=== PATIENT | male | born 1960 | race Caucasian/White ===

== ENCOUNTER → 2017-02-18 | Outpatient (CLI) | payer OTHER ==
[~2017-02-18] MED LIST: CYAN100020 PO; FLUT0.15 NAE; FLV1 PO; IBUP-1050 PO; MONT1TAB3 PO; SYMIN/8045 INH
[2017-02-18 17:18] LABS: ALT/SGPT 33 U/L (12-78); BLOOD UREA NITROGEN 10 mg/dl (7-18); BUN/CREATININE RATIO 10.1 (10-20); CALCIUM 8.7 mg/dl (8.5-10.1); CARBON DIOXIDE 27 mmol/L (21-32); CHLORIDE 104 mmol/L (98-107); CHOLESTEROL 234 mg/dl (0-200); CREATININE 0.97 mg/dl (0.60-1.40); GLUCOSE 90 mg/dl (70-99); POTASSIUM 4.2 mmol/L (3.5-5.1); SODIUM 137 mmol/L (136-145); TRIGLYCERIDES 70 mg/dl (0-150); VERY LOW DENSITY LIPOPROT CALC 14 mg/dl
[2017-02-18 17:28] LABS: ALKALINE PHOSPHATASE 114 U/L (45-117); AST/SGOT 19 U/L (15-37); CHOLESTEROL/HDL RATIO 3.8; HDL CHOLESTEROL 61 mg/dl; LDL CHOLESTEROL CALCULATED 159 mg/dl; PROSTATE SPECIFIC ANTIGEN 0.755 ng/ml (0.000-4.000)
== END | disposition home or self-care (01) ==
LOC: C.LABBC 14:22
PROVIDERS: ATTEND Physician Assistant Medical
DX: Z00.00 Encounter for general adult medical examination without abnormal findings (principal); J45.909 Unspecified asthma, uncomplicated; E78.5 Hyperlipidemia, unspecified; E72.12 Methylenetetrahydrofolate reductase deficiency; Z12.5 Encounter for screening for malignant neoplasm of prostate; Z11.59 Encounter for screening for other viral diseases

== ENCOUNTER 2021-12-24 15:21 | Inpatient (IN) ==
[2021-12-24] MEDS ORDERED: Heparin IV Adult Wt-Based Standard WITH Bolus Protocol IV STA (16:16)
--- NOTE | 2021-12-24 16:30 | Emergency Department Note ---
Impression & Plan Bilateral pulmonary embolism, Back pain, Breath shortness ED Provider Note NAME: SUSANNA BATISTA AGE: 61 SEX: M : 1960 ARRIVES VIA: Walk-In INFORMANT: Patient ED PROVIDER(S): Maximus Yepez DO CHIEF COMPLAINT: back pain HPI: Patient is a 61-year-old male who presents to the ER with a past medical history of previous PEs and DVTs for back pain and shortness of breath which has been present for the past week. He had a CT angio of the chest today which sh owed bilateral PEs which were extensive. He was consequently referred to the ER. He initially thought it was his asthma because when he used his inhaler it did help out. Denies any belly pain, nausea, vomiting, or diarrhea. No dysuria, urgency, or frequency. Left calf has been larger than right for the past several years following his previous DVT. 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 Pain is a 4 out of 10 in the left upper back. ROS: See above HPI for pertinent positives & negatives. A total of 10 systems reviewed and were otherwise negative. PAST MEDICAL HISTORY:See Below PAST SURGICAL HISTORY:See Below FAMILY HISTORY:See Below SOCIAL HISTORY:See Below HOME MEDICATIONS:See Below ALLERGIES:See Below VITALS:See Below PHYSICAL EXAMINATION: GENERAL: Sitting up in bed, alert, well appearing, well nourished, no distress, non-toxic EYE EXAM: normal conjunctiva. OROPHARYNX: no exudate, no erythema, lips, buccal mucosa, and tongue normal and mucous membranes are moist NECK: supple, no nuchal rigidity, no adenopathy, non-tender LUNGS: Clear to auscultation. Normal chest wall mechanics HEART: no murmurs, S1 normal and S2 normal ABDOMEN: abdomen soft, non-tender, normo-active bowel sounds, no masses, no rebound or guarding. BACK: Back is symmetrical on inspection and there is no deformity, no midline tenderness, no CVA tenderness. UPPER EXTREMITIES: upper extremities are grossly normal. LOWER EXTREMITIES: No pitting edema. NEURO EXAM: Normal sensorium, cranial nerves II-XII grossly intact, normal speech, no gross weakness of arms, no gross weakness of legs. MEDICAL DECISION MAKING: Patient is a 61-year-old male who presents the ER for above-stated complaint. IV was established blood work was obtained. Labs show no significant leukocy tosis or anemia. INR unremarkable. BMP along with LFTs bilirubin and lipase is unremarkable. Troponin was negative. COVID unremarkable. CT angio of the chest was reviewed which was done as an outpatient and showed extensive bilateral PEs. Vitals were fairly stable with pulse ox ranging from 94 to 91%. He was nontachycardic. He had no bleeding risk factors as he denied coughing up blood, vomiting blood, dark tarry stools or bright red blood per rectum. No recent trauma or surgery. No previous head bleeds. He was on blood thinners before and did well. He was placed on a heparin drip and given a heparin bolus as well. He was updated bedside discussed with [facility] hospitalist Dr. Davian Morton admitted for further work-up. Triage Nursing notes reviewed. Limited review of prior medical records performed Vital Signs: reviewed and remarkable for HTN Differential diagnosis: Differential diagnoses includes but is not limited to pneumonia, bronchitis, COPD/Asthma exacerbation, pneumothorax, pulmonary embolism, congestive heart failure, acute coronary syndrome ER treatment provided: See below Diagnostics interpreted by me: ECG: Sinus bradycardia rate of 57 Normal axis No PVCs QTC 404 Cardiac Monitoring: An order was placed for continuous cardiac monitoring. The monitor shows a rate of 65 with sinus rhythm. Laboratory studies: As stated above and show below. Imaging studies: CT angio was reviewed of the chest which showed bilateral PEs Consultation(s): Discussed with Dr. Davian Morton as described above Procedures: none Critical Care: I have personally spent 35 minutes of critical care time in the direct management of this patient. This includes bedside care, interpretation of diagnostic studies, and testing, discussion with consultants, patient, and family members, and other required patient management activities. This 35 minutes is in excess of all separately billable procedures. Past Med/Surg History Medical History Asthma USES INH TWICE PER MONTH ON AVERAGE Deep vein thrombosis APPROX 5 YEARS AGO - LIFE FLIGHTED TO [facility] - TREATED W/ BLOOD THINNERS (ON COUMADIN X 1 YEAR) - DX MTHFR MUTATION Elevated blood pressure reading without diagnosis of hypertension Herpes History of MTHFR mutation History of pulmonary embolus (PE) Hyperlipidemia Lactose intolerance Methylenetetrahydrofolate reductase deficiency Pulmonary embolism APPROX 5 YEARS AGO DVT --> PE - LIFE FLIGHTED TO [facility] - TREATED W/ BLOOD THINNERS (ON COUMADIN X 1 YEAR) - DX MTHFR MUTATION Seasonal allergies Tobacco use Surgical History H/O sinus surgery H/O tooth extraction History of colonoscopy Family History Father Hyperlipidemia Sister Type 2 diabetes mellitus Father Pancreatic cancer Denies family history of Ovarian cancer Prostate cancer Breast cancer Lung cancer Colorectal cancer Social History Smoking Status: Current every day smoker Tobacco Type: Cigarettes Age Started Using Tobacco: 16; Cigarettes Per Day: 1 PACK EVERY 3 DAYS; Second Hand Exposure: No; Hx Alcohol Use: Yes Alcohol type: beer, wine and hard liquor Hx Substance Use: No Preferred Language: [place] Citizen Communication Ability: Effective Visual Impairment: Partially Limited Hearing Ability: Normal Morphologist Required: No Beliefs That Will Affect Care: None marital status: Single Current Living Situation: Alone current occupational status: employed current occupation: [employer] How many Children do You have: 0 Feels Safe at Home: Yes Childhood Exposure to Second-Hand Smoke: No caffeine: Yes Dental Care, Regularly: Yes Physical Activity Frequency: Does not Exercise Seatbelt Use: always Sunscreen Use: Yes Allergies Allergies Allergy/AdvReac Type Severity Reaction Status Date / Time No Known Allergies Allergy Mild Verified 12/24/21 17:22 Home Meds Home Medications Medication Instructions Recorded Confirmed cyanocobalamin (vitamin B-12) 1 mg PO DAILY 02/21/18 12/24/21 1,000 mcg tablet (Vitamin B-12) folic acid 1 mg tablet 1 mg PO DAILY 02/21/18 12/24/21 montelukast 10 mg tablet 10 mg PO DAILY #90 tabs 01/17/19 12/24/21 sildenafil 100 mg tablet 100 mg PO DAILY PRN sexual activity 01/17/19 12/24/21 Previous Rx's Medication Instructions Recorded acyclovir 200 mg capsule 200 mg PO TID PRN herpes simiplex 04/18/20 type 1 #30 caps albuterol sulfate 90 mcg/actuation 2 puff inhalation Q6H PRN 08/01/20 aerosol inhaler (Ventolin HFA) shortness of breath or wheezing #8.5 grams fluticasone propionate 50 See Rx Instructions .Route 12/23/20 mcg/actuation nasal .COMPLEX #48 grams spray,suspension hydrocortisone 2.5 % topical cream 1 applic topical .COMPLEX #30 grams 11/24/21 fluticasone furoate 100 1 inh inhalation DAILY #60 ea 12/17/21 mcg-vilanterol 25 mcg/dose inhalation powder (Breo Ellipta) Results & Data (ED) Vital Signs Vital Signs - 24 hr 12/24/21 15:29 12/24/21 15:59 12/24/21 16:00 Temperature 36.4 C L Temperature Source Oral Pulse Rate 69 67 Pulse Rate [Apical] 62 Pulse Rhythm Regular Regular Pulse Rhythm [Apical] Regular Pulse Strength Normal Respiratory Rate 20 16 16 Respiratory Effort / Characteristics Non-Labored Spontaneous Respiratory Depth Normal Respiratory Pattern Regular Blood Pressure 151/89 H Blood Pressure [Left Arm] 160/93 H Blood Pressure Mean 109 Blood Pressure Mean [Left Arm] 115 Blood Pressure Position Sitting Pulse Oximetry 91 94 94 Oxygen Delivery Method Room Air Room Air Room Air Sepsis Recent Fever Within 48 Hours No Sepsis New/Unexplained Change in Mental Status No Sepsis Action Taken by Nursing No Action Required Laboratory Data Result diagrams: 12/24/21 16:19 12/24/21 16:19 Lab Results 12/24/21 12/24/21 12/24/21 Range/Units 16:19 16:19 16:19 WBC 11.01 H (4.8-10.8) K/ul RBC 4.99 (4.63-6.08) M/uL Hgb 15.7 (14.0-18.0) g/dl Hct 46.0 (40.1-51.0) % MCV 92.2 (80.0-100.0) fL MCH 31.5 (25.0-34.0) pg MCHC 34.1 (32.0-36.0) g/dL RDW Std Deviation 40.9 (36.4-46.3) fL RDW Coeff of Willa 12.0 (11.5-14.5) % Plt Count 261 (130-400) K/uL MPV 9.7 (9.4-12.4) fL Immature Gran % (Auto) 0.2 % Neut % (Auto) 53.3 % Lymph % (Auto) 21.9 % [place] % (Auto) 7.0 % Eos % (Auto) 16.8 % Baso % (Auto) 0.8 % Neut # (Auto) 5.87 (1.4-6.5) K/uL Lymph # (Auto) 2.41 (1.2-3.4) K/uL [place] # (Auto) 0.77 (0.24-0.82) K/uL Eos # (Auto) 1.85 H (0-0.50) K/uL Baso # (Auto) 0.09 (0-0.2) K/uL Immature Gran # (Auto) 0.02 (0.00-0.02) K/uL PT 11.2 (9.0-12.0) Seconds INR 1.1 (0.9-1.1) APTT 25.2 (21.0-31.0) Seconds PTT Ratio 0.9 Sodium 138 (136-145) mmol/L Potassium 4.5 (3.5-5.1) mmol/L Chloride 101 (98-107) mmol/L Carbon Dioxide 29 (21-32) mmol/L Anion Gap 8 (3-11) BUN 12 (6-23) mg/dl Creatinine 0.96 (0.6-1.4) mg/dl Est Cr Clr Drug Dosing 93.7 ml/min Est GFR ( Amer) 97.1 ml/min Est GFR (Non-Af Amer) 83.8 ml/min BUN/Creatinine Ratio 12.5 (10-20) Glucose 80 (70-99(Fasting)) mg/dl Calcium 9.3 (8.5-10.1) mg/dl Total Bilirubin 0.8 (0.2-1.0) mg/dl AST 18 (13-39) U/L ALT 18 (7-52) U/L Alkaline Phosphatase 109 H (34-104) U/L Troponin I High Sens 6.5 (0-20) pg/ml Total Protein 7.3 (6.0-8.3) gm/dl Albumin 4.1 (3.4-5.0) gm/dl Globulin 3.2 (2.5-4.0) gm/dl Albumin/Globulin Ratio 1.3 (0.9-2) Lipase 27 (11-82) U/L SARS-CoV-2, RNA, NAAT (NEGATIVE) 12/24/21 Range/Units 17:10 WBC (4.8-10.8) K/ul RBC (4.63-6.08) M/uL Hgb (14.0-18.0) g/dl Hct (40.1-51.0) % MCV (80.0-100.0) fL MCH (25.0-34.0) pg MCHC (32.0-36.0) g/dL RDW Std Deviation (36.4-46.3) fL RDW Coeff of Willa (11.5-14.5) % Plt Count (130-400) K/uL MPV (9.4-12.4) fL Immature Gran % (Auto) % Neut % (Auto) % Lymph % (Auto) % [place] % (Auto) % Eos % (Auto) % Baso % (Auto) % Neut # (Auto) (1.4-6.5) K/uL Lymph # (Auto) (1.2-3.4) K/uL [place] # (Auto) (0.24-0.82) K/uL Eos # (Auto) (0-0.50) K/uL Baso # (Auto) (0-0.2) K/uL Immature Gran # (Auto) (0.00-0.02) K/uL PT (9.0-12.0) Seconds INR (0.9-1.1) APTT (21.0-31.0) Seconds PTT Ratio Sodium (136-145) mmol/L Potassium (3.5-5.1) mmol/L Chloride (98-107) mmol/L Carbon Dioxide (21-32) mmol/L Anion Gap (3-11) BUN (6-23) mg/dl Creatinine (0.6-1.4) mg/dl Est Cr Clr Drug Dosing ml/min Est GFR ( Amer) ml/min Est GFR (Non-Af Amer) ml/min BUN/Creatinine Ratio (10-20) Glucose (70-99(Fasting)) mg/dl Calcium (8.5-10.1) mg/dl Total Bilirubin (0.2-1.0) mg/dl AST (13-39) U/L ALT (7-52) U/L Alkaline Phosphatase (34-104) U/L Troponin I High Sens (0-20) pg/ml Total Protein (6.0-8.3) gm/dl Albumin (3.4-5.0) gm/dl Globulin (2.5-4.0) gm/dl Albumin/Globulin Ratio (0.9-2) Lipase (11-82) U/L SARS-CoV-2, RNA, NAAT NEGATIVE (NEGATIVE) Administered Medications Heparin Sodium/Dextrose (Heparin Sodium/Dextrose) 25,000 units in 500 mls @ 30 mls/hr IV .[id number] [facility]; Protocol Stop: 01/23/22 16:44 Last Admin: 12/24/21 17:33 Dose: 1,500 units/hr, 30 mls/hr Documented By: DELVIN Co-signed By: OL Discontinued Medications Heparin Sodium (Porcine) (Heparin Sod (Porcine) 1000 Unit/Ml) 7,000 units IV NOW ONE Stop: 12/24/21 16:46 Last Admin: 12/24/21 17:33 Dose: 7,000 units Documented By: DELVIN Co-signed By: HERMELINDA Heparin Sodium/Dextrose (Heparin Iv Adult Wt-Based Standard With Bolus Protocol) 1 [facility]; Protocol Stop: 12/24/21 16:17 Last Admin: 12/24/21 17:37 Dose: 1 each Documented By: DELVIN Imaging Data Radiologist's Impression: Venous Doppler Study 12/24/21 17:25 ULTRASOUND BILATERAL LOWER EXTREMITY VENOUS CLINICAL HISTORY: Pulmonary embolus. COMPARISON STUDY: Left lower extremity venous ultrasound dated 02/21/2018 TECHNIQUE: Real-time, grayscale, and color Doppler sonography of the deep veins of the right and left lower extremity was performed from the inguinal crease to the calf. Compression and augmentation were utilized. FINDINGS: There is no sonographic evidence of deep venous thrombosis identified in the right or left lower extremity. The common femoral, superficial femoral, and popliteal veins are patent and normally compressible bilaterally. The greater saphenous vein and the profunda femoris vein at the junction with the common femoral vein are clear in both legs. The visualized calf veins are patent bilaterally. IMPRESSION: There is no sonographic evidence of deep venous thrombosis identified in the right or left lower extremity. ACT 112: Negative or not required by law. Electronically signed by: Dave Lagos M.D. 12/24/2021 6:40 PM Discharge Plan Visit Data Chief Complaint: Shortness of Breath/Dyspnea Stated Complaint: PE, BILATERAL ED Provider: Maximus Yepez Discharge Problem: Bilateral pulmonary embolism, Back pain, Breath shortness Forms Stand Alone Forms: My [facility] [place] Prescriptions Prescriptions: No Action acyclovir 200 mg capsule 200 mg PO TID PRN (Reason: herpes simiplex type 1) Qty: 30 0RF fluticasone propionate 50 mcg/actuation spray,suspension See Rx Instructions .ROUTE .COMPLEX Qty: 48 3RF Dose Instruction: ADMINISTER 2 SPRAYS INTRANASALLY TWICE A DAY. Rx Instructions: ADMINISTER 2 SPRAYS INTRANASALLY TWICE A DAY. hydrocortisone 2.5 % cream 1 applic TOP .COMPLEX Qty: 30 3RF Rx Instructions: 1 applic topical 2-3 times daily to affected areas; Breo Ellipta 100-25 mcg/dose blister with device 1 inh inhalation DAILY Qty: 60 2RF montelukast 10 mg tablet 10 mg PO DAILY Qty: 90 sildenafil 100 mg tablet 100 mg PO DAILY PRN (Reason: sexual activity) albuterol sulfate [Ventolin HFA] 90 mcg/actuation HFA aerosol inhaler 2 puff inhalation Q6H PRN (Reason: shortness of breath or wheezing) Qty: 8.5 3RF cyanocobalamin (vitamin B-12) [Vitamin B-12] 1,000 mcg Tablet 1 mg PO DAILY folic acid 1 mg Tablet 1 mg PO DAILY Referrals Referrals: Logan Longo MD [Primary Care Provider] -
[2021-12-24] MEDS ORDERED: HEPARIN SOD (PORCINE) 1000 UNIT/ML IV ONE ×2 (16:32→16:45)
[2021-12-24 16:37] LABS: Basophils # (auto) 0.09 K/uL (0-0.2); Basophils % (auto) 0.8 %; Eosinophils # (auto) 1.85 K/uL (0-0.50); Eosinophils % (auto) 16.8 %; Hemoglobin 15.7 g/dl (14.0-18.0); Immature Granulocytes # (auto) 0.02 K/uL (0.00-0.02); Immature Granulocytes % (auto) 0.2 %; Lymphocytes # (auto) 2.41 K/uL (1.2-3.4); Lymphocytes % (auto) 21.9 %; Mean Corpuscular Hemoglobin 31.5 pg (25.0-34.0); Mean Corpuscular Hgb Conc 34.1 g/dL (32.0-36.0); Mean Corpuscular Volume 92.2 fL (80.0-100.0); Mean Platelet Volume 9.7 fL (9.4-12.4); Monocytes # (auto) 0.77 K/uL (0.24-0.82); Neutrophils # (auto) 5.87 K/uL (1.4-6.5); Neutrophils % (auto) 53.3 %; Platelet Count 261 K/uL (130-400); RDW Standard Deviation 40.9 fL (36.4-46.3); Red Blood Count 4.99 M/uL (4.63-6.08); White Blood Count 11.01 K/ul (4.8-10.8)
[2021-12-24 16:55] LABS: INR 1.1 (0.9-1.1); Partial Thromboplastin Ratio 0.9; Partial Thromboplastin Time 25.2 Seconds (21.0-31.0); Prothrombin Time 11.2 Seconds (9.0-12.0)
--- NOTE | 2021-12-24 17:03 | History & Physical Report ---
Date of Service December 24, 2021 Assessment & Plan (1) Bilateral pulmonary embolism: Plan: -Admit to PCU -Patient is currently afebrile, hemodynamically stable and stable on RA -Patient has history of previous DVT with PE's in 2010, was diagnosed with MTHFR gene mutation on workup at that time, was taken off Warfarin after a year but continues to take folic acid and B12 as prescribed -Spoke to the ICU who recommended heparin bolus and drip for at least 12-14 tiesha rs minimum prior to switching to oral anticoagulants -CT without evidence of right heart strain, will get TTE to confirm -Will order BL LE dopplers to monitor for DVT's -Monitor on tele and continuous pulse oximetry -AM CBC and BMP (2) Methylenetetrahydrofolate reductase deficiency: Plan: -Diagnosed on hypercoagulable workup from first DVT/PE -Continue B12 and folic acid, will get B12 and folic acid levels to ensure he is getting adequate dosing (3) Tobacco use: Plan: -Quit 3 weeks ago -Does not want nicotine patch or gum at this time (4) Hyperlipidemia: Plan: -Not currently on a statin, could consider restarting prior to discharge -Added on lipid panel Plan The patient was discussed with Dr. Morton at the time of admission History of Present Illness Chief Complaint: Back pain/SOB Primary Care Provider: Logan Longo MD Bassem is a 61 year old male with a PMH significant for previous DVT/PE in 2010, MTHFR mutation on previous hypercoagulable workup, 30 yr smoking history for which he recently quit 3 weeks ago,, hyperlipidemia, asthma, who presented to the [facility] ED on 12/24/21 with complaints of back pain, pleuritic chest pain, and worsening dyspnea for the past week. He was seen at his PCP's office earlier today for the same symptoms, they ordered him a STAT CTA of the Chest due to his past history. CTA shows extensive BL pulmonary emboli, trace left pleural effus ion, and bronchial wall thickening suggestive of bronchitis/reactive airway disease. The patient was sent to the ED after his CT was read. In the ED he was found to be afebrile, hemodynamically stable, and stable on RA. The patient was given a heparin bolus and then started on a heparin drip prior to admission. At the time of the exam the patient was sitting comfortably in bed in no acute distress. He states he started developing back pain and increased SOB from his baseline approximately 10 days ago. He thought this was possibly an asthma exacerbation and continued to use his albuterol inhaler without relief. He recently stopped using his breo-ellipta because he read the side effects and thought his back pain and joint pain could have been caused by it. He states that the last time he had the DVT with PE's he underwent a hypercoagulable workup and was found to have the MTHFR gene mutation. He was placed on Warfarin, folic acid, and B12. He was taken off the Warfarin after a year and continues taking the folic acid and B12 daily. 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 He has not been on a statin for some time as he has been trying to control his cholesterol with the Mediterranean diet. he notes that his previous DVT was in his left left, since then his left leg has always been more swollen than the right. He has been experiencing pleuritic chest pain with deep inspiration more on the left chest than the right and has also noticed increased cough from his baseline, without hemoptysis. Allergies Allergy/AdvReac Type Severity Reaction Status Date / Time No Known Allergies Allergy Mild Verified 12/24/21 17:22 Home Medications Medication Instructions Recorded Confirmed Type cyanocobalamin (vitamin B-12) 1 mg PO DAILY 02/21/18 12/24/21 History 1,000 mcg tablet (Vitamin B-12) folic acid 1 mg tablet 1 mg PO DAILY 02/21/18 12/24/21 History montelukast 10 mg tablet 10 mg PO DAILY #90 tabs 01/17/19 12/24/21 History sildenafil 100 mg tablet 100 mg PO DAILY PRN sexual activity 01/17/19 12/24/21 History acyclovir 200 mg capsule 200 mg PO TID PRN herpes simiplex 04/18/20 12/24/21 Rx type 1 #30 caps albuterol sulfate 90 mcg/actuation 2 puff inhalation Q6H PRN 08/01/20 12/24/21 Rx aerosol inhaler (Ventolin HFA) shortness of breath or wheezing #8.5 grams fluticasone propionate 50 See Rx Instructions .Route 12/23/20 12/24/21 Rx mcg/actuation nasal .COMPLEX #48 grams spray,suspension hydrocortisone 2.5 % topical cream 1 applic topical .COMPLEX #30 grams 11/24/21 12/24/21 Rx fluticasone furoate 100 1 inh inhalation DAILY #60 ea 12/17/21 12/24/21 Rx mcg-vilanterol 25 mcg/dose inhalation powder (Breo Ellipta) Past Med/Surg History Medical History Asthma USES INH TWICE PER MONTH ON AVERAGE Deep vein thrombosis APPROX 5 YEARS AGO - LIFE FLIGHTED TO [facility] - TREATED W/ BLOOD THINNERS (ON COUMADIN X 1 YEAR) - DX MTHFR MUTATION Elevated blood pressure reading without diagnosis of hypertension Herpes History of MTHFR mutation History of pulmonary embolus (PE) Hyperlipidemia Lactose intolerance Methylenetetrahydrofolate reductase deficiency Pulmonary embolism APPROX 5 YEARS AGO DVT --> PE - LIFE FLIGHTED TO [facility] - TREATED W/ BLOOD THINNERS (ON COUMADIN X 1 YEAR) - DX MTHFR MUTATION Seasonal allergies Tobacco use Surgical History H/O sinus surgery H/O tooth extraction History of colonoscopy Family History Father Hyperlipidemia Sister Type 2 diabetes mellitus Father Pancreatic cancer Denies family history of Ovarian cancer Prostate cancer Breast cancer Lung cancer Colorectal cancer Social History Smoking Status: Former smoker Tobacco Type: Cigarettes Age Started Using Tobacco: 16; Cigarettes Per Day: 1 PACK EVERY 3 DAYS; Second Hand Exposure: No; Hx Alcohol Use: Yes Alcohol type: beer, wine and hard liquor Hx Substance Use: No Preferred Language: Luxembourgish Communication Ability: Effective Visual Impairment: Partially Limited Hearing Ability: Normal 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 Beliefs That Will Affect Care: None marital status: Single Current Living Situation: Alone current occupational status: employed current occupation: [employer] How many Children do You have: 0 Feels Safe at Home: Yes Safety Concerns: Feels Safe At This Time Childhood Exposure to Second-Hand Smoke: No caffeine: Yes Dental Care, Regularly: Yes Physical Activity Frequency: Does not Exercise Seatbelt Use: always Sunscreen Use: Yes Assistive Devices: None Review of Systems Review of Systems: Denies current fever, chills, headache, changes in vision, hearing, taste, and smell, abdominal pain, nausea, vomiting, diarrhea, hematemesis, melena, dysuria, hematuria, and recent falls. All systems have been reviewed and are otherwise negative. Physical Exam Physical Exam: Physical Exam: General: In no acute distress, stated age, well-nourished, good hygiene HEENT: Normocephalic, atraumatic, no scleral icterus, pupils around round, symmetrical, and reactive to light, moist mucus membranes, trachea midline, no thyromegaly Chest/Pulm: No respiratory distress, symmetrical chest expansion, expiratory wheezing noted throughout Cardiac: RRR, no murmurs noted Abdomen: Negative for ascites and bruising, normoactive bowel sounds, soft, non-tender to palpation throughout Musculoskeletal: Symmetrical and without signs of acute trauma, upper and lower extremities with full ROM, no atrophy, spasticity, or flaccidity Extremities: Radial, dorsalis pedis, and posterior tibial pulses are intact and symmetrical, +1-2 pitting edema noted in the left lower extremity Skin: Warm, dry, no rashes , lesions, or scars noted Neuro: Alert and oriented to person, place, month, year, and president, no focal defects, CN II-XII tested and intact, finger to nose test negative, no tremors noted Psych: No acute distress, calm and cooperative during the exam Results & Data Results & Data ([facility]) Vital Signs (Past 12 Hours) Vital Signs Temp Pulse Pulse Resp BP BP Pulse Ox 12/24/21 16:00 62 16 160/93 H 94 12/24/21 15:59 67 16 94 12/24/21 15:29 36.4 C L 69 20 151/89 H 91 O2 Del Method 12/24/21 16:00 Room Air 12/24/21 15:59 Room Air 12/24/21 15:29 Room Air Laboratory Results Abnormal lab results 12/24/21 12/24/21 Range/Units 16:19 16:19 WBC 11.01 H (4.8-10.8) K/ul Eos # (Auto) 1.85 H (0-0.50) K/uL Alkaline Phosphatase 109 H (34-104) U/L Diagnostic Findings CT angio chest PE protocol CT DOSE: 637.48 mGy.cm HISTORY: 61 years-old Male with R07.81 - Pleurodynia. Acute shortness of breath TECHNIQUE: Multiple CTA images of the chest were obtained after the intravenous administration of 120 ml Optiray. Coronal and sagittal MIPS were obtained from the axial data set and were submitted for review. All measurements were obtained according to NASCET criteria. A dose lowering technique was utilized adhering to the principles of ALARA. COMPARISON: CTA chest 05/19/2010 FINDINGS: CTA: The heart is normal in size. No pericardial effusion. No thoracic aortic aneurysm. Patency of the imaged great vessels. Considerable amount of bilateral lobar, segmental and subsegmental pulmonary emboli. No saddle embolus. CT CHEST: Unremarkable thyroid. Borderline enlarged mediastinal and hilar lymph nodes. Trace left pleural effusion. No pneumothorax. Bilateral bronchial wall thickening. Scattered bilateral tree-in-bud nodules. Bibasilar mucous plugging. Nonspecific diffuse circumferential wall thickening of the esophagus. Mild colonic fecal retention. Unremarkable soft tissues. No acute fracture. IMPRESSION: 1. Extensive bilateral pulmonary emboli. 2. Trace left pleural effusion. 3. Bronchial wall thickening suggestive of bronchitis or reactive airway disease with mucous plugging and bilateral tree-in-bud nodules suggestive of an infectious or inflammatory bronchiolitis. 4. Borderline enlarged mediastinal and hilar lymph nodes are likely reactive. ACT 112: Negative or not required by law. The above report was generated using voice recognition software. It may contain grammatical, syntax or spelling errors. Electronically signed by: Carlton Burch M.D. 12/24/2021 3:08 PM Dictated:12/24/21 1503 Transcribed: 12/24/21 1503 ECG Additional Comments: Sinus bradycardia Otherwise normal ECG When compared with ECG of 12-DEC-2017 13:25, No significant change was found Code Status & VTE Plan Code Status Full code VTE Prophylaxis Plan VTE Prophylaxis will be ordered: Yes Supervising Physician Co-Signing Physician Notes Patient seen and examined at bedside. During face to face encounter obtained a history and physical examination. I reviewed above note and agree with it. Plan of care discussed with patient and APC Peno. Patient admitted with pulmonary emboli, placed on IV heparin. will defer choice of home anticoagulant to morning team. PG Care Time/CCT Total # of Minutes Spent Total Time Spent with Patient: Total time spent is greater than 50% in coordination of care (as documented) at patient's floor/unit and/or counseling patient: [place] [address] Initial Inpt Care Lvl 3 Patient Type Established Medical Decision Making High Complexity Diagnoses Bilateral pulmonary embolism I26.99 Methylenetetrahydrofolate reductase deficiency E72.12 Tobacco use Z72.0 Hyperlipidemia E78.00 Hyperlipidemia type: pure hypercholesterolemia (1) Hyperlipidemia Hyperlipidemia type: pure hypercholesterolemia Qualified Code(s): E78.00 - Pure hypercholesterolemia, unspecified
[2021-12-24 17:05] LABS: Troponin I High Sensitivity 6.5 pg/ml (0-20)
[2021-12-24 17:18] LABS: Albumin Globulin Ratio 1.3 (0.9-2); Albumin Level 4.1 gm/dl (3.4-5.0); BUN Creatinine Ratio 12.5 (10-20); Bilirubin,Total 0.8 mg/dl (0.2-1.0); Calcium 9.3 mg/dl (8.5-10.1); Creatinine Clr Calc Pharmacy 93.7 ml/min; Est GFR (African American) 97.1 ml/min; Est GFR (Non-African American) 83.8 ml/min; Globulin 3.2 gm/dl (2.5-4.0); Potassium 4.5 mmol/L (3.5-5.1); Total Protein 7.3 gm/dl (6.0-8.3)
[2021-12-24] MEDS: HEPARIN SODIUM/DEXTROSE 25,000 UNITS/500 ML BAG IV SCH (17:33)
--- NOTE | 2021-12-24 18:42 | Ultrasound Report ---
ULTRASOUND BILATERAL LOWER EXTREMITY VENOUS CLINICAL HISTORY: Pulmonary embolus. COMPARISON STUDY: Left lower extremity venous ultrasound dated 02/21/2018 TECHNIQUE: Real-time, grayscale, and color Doppler sonography of the deep veins of the right and left lower extremity was performed from the inguinal crease to the calf. Compression and augmentation wer e utilized. FINDINGS: There is no sonographic evidence of deep venous thrombosis identified in the right or left lower extremity. The common femoral, superficial femoral, and popliteal veins are patent and normally compressible bilaterally. The greater saphenous vein and the profunda femoris vein at the junction w ith the common femoral vein are clear in both legs. The visualized calf veins are patent bilaterally. IMPRESSION: There is no sonographic evidence of deep venous thrombosis identified in the right or lef t lower extremity. ACT 112: Negative or not required by law. Electronically signed by: Dave Lagos M.D. 12/24/2021 6:40 PM
[2021-12-24] MEDS ORDERED: ALBUTEROL HFA 8 GM INHALER INH PRN (19:43)
[2021-12-24] MEDS ORDERED: traMADol HCL 50 MG TABLET PO PRN (19:43)
[2021-12-24] MEDS ORDERED: ACETAMINOPHEN 325 MG TAB PO PRN (19:43)
[2021-12-24 20:01] LABS: Chol HDL Ratio 3.1 (0-5)
[2021-12-24 20:27] LABS: Folate (Folic Acid) > 22.30 ng/ml (>5.38)
[2021-12-24 20:28] LABS: Vitamin B12 494 pg/ml (180-914)
[2021-12-25] LABS: Partial Thromboplastin Ratio 2.7
[2021-12-25 00:41] LABS: Partial Thromboplastin Time 74.8 Seconds (21.0-31.0)
[2021-12-25 07:06] LABS: Basophils # (auto) 0.06 K/uL (0-0.2); Basophils % (auto) 0.6 %; Eosinophils # (auto) 1.72 K/uL (0-0.50); Eosinophils % (auto) 17.4 %; Hematocrit (blood only) 42.4 % (40.1-51.0); Hemoglobin 14.8 g/dl (14.0-18.0); Immature Granulocytes # (auto) 0.02 K/uL (0.00-0.02); Immature Granulocytes % (auto) 0.2 %; Lymphocytes # (auto) 1.87 K/uL (1.2-3.4); Lymphocytes % (auto) 18.9 %; Mean Corpuscular Hemoglobin 31.7 pg (25.0-34.0); Mean Corpuscular Hgb Conc 34.9 g/dL (32.0-36.0); Mean Corpuscular Volume 90.8 fL (80.0-100.0); Mean Platelet Volume 9.6 fL (9.4-12.4); Monocytes # (auto) 0.86 K/uL (0.24-0.82); Monocytes % (auto) 8.7 %; Neutrophils # (auto) 5.35 K/uL (1.4-6.5); Neutrophils % (auto) 54.2 %; Platelet Count 227 K/uL (130-400); RDW Standard Deviation 39.7 fL (36.4-46.3); Red Blood Count 4.67 M/uL (4.63-6.08); White Blood Count 9.88 K/ul (4.8-10.8)
[2021-12-25 07:26] LABS: BUN Creatinine Ratio 14.6 (10-20); Calcium 8.7 mg/dl (8.5-10.1); Creatinine Clr Calc Pharmacy 92.3 ml/min; Est GFR (African American) 97.1 ml/min; Est GFR (Non-African American) 83.8 ml/min; Potassium 4.5 mmol/L (3.5-5.1)
[2021-12-25 07:46] LABS: Partial Thromboplastin Ratio 1.9
[2021-12-25] MEDS ORDERED: FLUTICASONE/VILANTEROL 100/25MCG 14 PUFFS/INHALER INH SCH (08:00)
--- NOTE | 2021-12-25 08:09 | Hospitalist Progress Note ---
Date of Service December 25, 2021 Assessment & Plan (1) Bilateral pulmonary embolism: Plan: -Admit to PCU -Patient is currently afebrile, hemodynamically stable and stable on RA -Patient has history of previous DVT with PE's in 2010, was diagnosed with MTHFR gene mutation on workup at that time, was taken off Warfarin after a year but continues to take folic acid and B12 as prescribed - heparin bolus and drip transition to oral anticoagulants -CT without evidence of right heart strain, will get TTE to confirm -LE dopplers negative for DVT's (2) Methylenetetrahydrofolate reductase deficiency: Plan: -Diagnosed on hypercoagulable workup from first DVT/PE -Continue B12 and folic acid, will get B12 and folic acid levels to ensure he is getting adequate dosing (3) Tobacco use: Plan: -Quit 3 weeks ago -Does not want nicotine patch or gum at this time possible bronchitis, tree in bud seen on Ct chest with mucus plugging, would consider po doxycycline and mucolytics if clinically apparent (4) Hyperlipidemia: Plan: -Not currently on a statin, could consider restarting prior to discharge -lipid panel tc 194 ldl 117 hdl 62 Admission and Anticipated Discharge Date Admission Date: December 24, 2021 Results & Data Results & Data ([facility]) Vital Signs (Past 12 Hours) Vital Signs Temp Pulse Pulse Resp BP Pulse Ox O2 Del Method 12/25/21 07:14 98.2 F 68 20 143/70 H 93 Room Air 12/25/21 02:59 98.2 F 57 L 20 118/70 91 Room Air 12/24/21 23:01 98.1 F 65 16 113/61 93 Room Air 12/24/21 22:17 57 L 12/24/21 20:15 98.1 F 63 16 129/73 93 Room Air PG Care Time/CCT Total # of Minutes Spent Total Time Spent with Patient: Total time spent is greater than 50% in coordination of care (as documented) at patient's floor/unit and/or counseling patient: Coding Diagnoses Bilateral pulmonary embolism I26.99 Methylenetetrahydrofolate reductase deficiency E72.12 Tobacco use Z72.0 Hyperlipidemia E78.00 Hyperlipidemia type: pure hypercholesterolemia (1) Hyperlipidemia Hyperlipidemia type: pure hypercholesterolemia Qualified Code(s): E78.00 - Pure hypercholesterolemia, unspecified
[2021-12-25] MEDS ORDERED: CYANOCOBALAMIN (B-12) 500 MCG TABLET PO SCH (09:00)
[2021-12-25] MEDS ORDERED: FOLIC ACID 1 MG TAB PO SCH (09:00)
[2021-12-25] MEDS: HEPARIN SODIUM/DEXTROSE 25,000 UNITS/500 ML BAG IV SCH (10:33)
[2021-12-25] MEDS ORDERED: APIXABAN 5 MG TABLET PO ONE (11:04)
--- NOTE | 2021-12-25 12:32 | XCELERA ---
[id number]
--- NOTE | 2021-12-25 13:38 | Electrocardiogram Report ---
Test Reason : Blood Pressure : / mmHG Vent. Rate : 057 BPM Atrial Rate : 057 BPM P-R Int : 144 ms QRS Dur : 094 ms QT Int : 416 ms P-R-T Axes : 018 015 033 degrees QTc Int : 404 ms Sinus bradycardia Otherwise normal ECG When compared with ECG of 12-DEC-2017 13:25, No significant change was found Confirmed by Jacinto Ulrich ([id number]) on 12/25/2021 1:38:48 PM Referred By: REFERRED SELF Confirmed By:Alex Ulrich
--- NOTE | 2021-12-25 17:28 | Discharge Summary ---
Date of Service December 25, 2021 Admission HPI Per Admitting Provider Bassem is a 61 year old male with a PMH significant for previous DVT/PE in 2010, MTHFR mutation on previous hypercoagulable workup, 30 yr smoking history for which he recently quit 3 weeks ago,, hyperlipidemia, asthma, who presented to the [facility] ED on 12/24/21 with complaints of back pain, pleuritic chest pain, and worsening dyspnea for the past week. He was seen at his PCP's office earlier today for the same symptoms, they ordered him a STAT CTA of the Chest due to his past history. CTA shows extensive BL pulmonary emboli, trace left pleural effusion, and bronchial wall thickening suggestive of bronchitis/reactive airway disease. The patient was sent to the ED after his CT was read. In the ED he was found to be afebrile, hemodynamically stable, and stable on RA. The patient was given a heparin bolus and then started on a heparin drip prior to admission. At the time of the exam the patient was sitting comfortably in bed in no acute distress. He states he started developing back pain and increased SOB from his baseline approximately 10 days ago. He thought this was possibly an asthma exacerbation and continued to use his albuterol inhaler without relief. He recently stopped using his breo-ellipta because he read the side effects and thought his back pain and joint pain could have been caused by it. He states that the last time he had the DVT with PE's he underwent a hypercoagulable workup and was found to have the MTHFR gene mutation. He was placed on Warfarin, folic acid, and B12. He was taken off the Warfarin after a year and continues taking the folic acid and B12 daily. 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 He has not been on a statin for some time as he has been trying to control his cholesterol with the Mediterranean diet. he notes that his previous DVT was in his left left, since then his left leg has always been more swollen than the right. He has been experiencing pleuritic chest pain with deep inspiration more on the left chest than the right and has also noticed increased cough from his baseline, without hemoptysis. Principal Diagnosis Bilateral pulmonary embolism discharged on Eliquis Discharge Exam The patient appeared stable Vital signs as documented. Lungs are clear to auscultation and appear unlabored Cardiac exam, Rhythm is regular.. No murmurs, rubs or gallops. Abdominal exam reveals normal bowel sounds, soft non tender, no masses Extremities are nonedematous and both pedal pulses are normal. Neurologic exam is alert and oriented, no focal loss of strength or sensation Skin is without bruises or rashes Psychologically is without concerns for anxiety or depression. Discharge Data Allergies Allergy/AdvReac Type Severity Reaction Status Date / Time No Known Allergies Allergy Mild Verified 12/24/21 17:22 Consultations 12/24/21 16:17 ED Decision to Admit Stat Ordered Studies 12/24/21 17:25 US venous doppler LE Routine Hospital Course (1) Bilateral pulmonary embolism: -Patient is currently afebrile, hemodynamically stable and stable on RA -Patient has history of previous DVT with PE's in 2010, was diagnosed with MTHFR gene mutation on workup at that time, was taken off Warfarin after a year but continues to take folic acid and B12 as prescribed - heparin bolus and drip transition to Eliquis prior to discharge. Arrange with pharmacy acceptance of 30-day free supply coupon. Will need prior authorization by PCP for additional doses -CT without evidence of right heart strain Echocardiogram shows normal LV systolic function concentric LVH right ventricle is normal size and function and mild elevation of right ventricular systolic pressure to 30 to 40 mmHg -LE dopplers negative for DVT's (2) Methylenetetrahydrofolate reductase deficiency: -Diagnosed on hypercoagulable workup from first DVT/PE -Continue B12 and folic acid, B12 level is normal and folic acid level is supratherapeutic (3) Tobacco use: -Quit 3 weeks ago -Does not want nicotine patch or gum at this time possible bronchitis, tree in bud seen on Ct chest with mucus plugging, no clinical concerns of current infection (4) Hyperlipidemia: -Not currently on a statin, could consider restarting prior to discharge -lipid panel tc 194 ldl 117 hdl 62 Total Time Total Time Spent Total Time Spent (In Minutes): It required greater than 30 minutes to prepare this patient for discharge Discharge Plan Discharge Items Patient Disposition: Home - Self-Care Reason For Visit: BACK PAIN/SOB Discharge Diagnosis: pulmomay embolism peuritic chest pain Activity: Resume your previous activity Non-emergency contact: Primary Care Provider Call non-emergency contact if: your symptoms worsen Follow-up/Referrals: Logan Longo MD [Primary Care Provider] - 01/01/22 2:15 pm (Laurel Nick PA-C) Diet: Regular Addtl Attending Provider Instructions: Medication Instructions: Your condition is typically treated with an anticoagulant. Anticoagulants will thin your blood to help prevent new clots. * You should take her medication exactly as directed. * Never skip a dose. * Never take a double dose. If you miss a dose, take it as soon as you remember. Call your Primary Care doctor if you experience any of the following: * Swelling or Pain in your leg * Sudden, continuous pain deep in a muscle * Pain that worsens when you are active or when you stand still for a long time * Chest Pain * Sudden Shortness of Breath * Rapid or pounding heart beat * Fainting * Dizziness * Cough with blood or bloody sputum * Sweating more than normal * Bruises * Heavy or uncontrolled bleeding * Blood in your urine, stool or vomit * Black or tarry stools Caring for Your Self at Home: * Avoid sitting, standing or lying down for long periods without moving your legs and feet * When traveling by car, stop to get out and move around at least once every 3 hours * On long airplane, train or bus rides, get up and move around when possible * If you can't get up, wiggle your toes and tighten your calves to keep your blood moving Follow Up: It is important for you to keep your follow up appointments with your medical provider. Pending Studies at Discharge: No Stand-Alone Forms: [facility] [employer], Smoking Cessation Medications and DC Order Prescriptions: New Eliquis 5 mg (74 tabs) tablets,dose pack 5 mg PO BID Qty: 74 0RF Rx Instructions: 2 tabs bid for one week then 1 tab bid you need to get additional rx from Dr Longo Continued acyclovir 200 mg capsule 200 mg PO TID PRN (Reason: herpes simiplex type 1) Qty: 30 0RF fluticasone propionate 50 mcg/actuation spray,suspension See Rx Instructions .ROUTE .COMPLEX Qty: 48 3RF Dose Instruction: ADMINISTER 2 SPRAYS INTRANASALLY TWICE A DAY. Rx Instructions: ADMINISTER 2 SPRAYS INTRANASALLY TWICE A DAY. hydrocortisone 2.5 % cream 1 applic TOP .COMPLEX Qty: 30 3RF Rx Instructions: 1 applic topical 2-3 times daily to affected areas; Breo Ellipta 100-25 mcg/dose blister with device 1 inh inhalation DAILY Qty: 60 2RF montelukast 10 mg tablet 10 mg PO DAILY Qty: 90 sildenafil 100 mg tablet 100 mg PO DAILY PRN (Reason: sexual activity) albuterol sulfate [Ventolin HFA] 90 mcg/actuation HFA aerosol inhaler 2 puff inhalation Q6H PRN (Reason: shortness of breath or wheezing) Qty: 8.5 3RF cyanocobalamin (vitamin B-12) [Vitamin B-12] 1,000 mcg Tablet 1 mg PO DAILY folic acid 1 mg Tablet 1 mg PO DAILY Discharge Orders: Discharge Order (Routine); Ordered 12/25/21 Ordered By: Roby Dawson Admission Data Admit Date/Time: 12/24/21 17:06 Attending Provider: Roby Dawson Admit Provider: Davian Morton Primary Care Provider: Logan Longo Other Providers: Davian Morton Other Interventions: Discharge Summary Assessment (RN) Last Done: 12/25/21 12:04 Coding Level of Care Code D/C DAY MANAGEMENT >30 MINS Diagnoses Bilateral pulmonary embolism I26.99 Methylenetetrahydrofolate reductase deficiency E72.12 Tobacco use Z72.0 Hyperlipidemia E78.00 Hyperlipidemia type: pure hypercholesterolemia
== END 2021-12-25 12:55 | disposition home or self-care (01) | DRG 176 ==
LOC: ED 15:21 → SUATTDRO 17:06 → 2S 17:06